=== PATIENT | female | born 1960 ===

== ENCOUNTER 2023-06-27 06:30 | Day surgery (SDC) | payer BC, OTHER ==
[2023-06-22 09:54] LABS: Absolute Lymphocytes (CBC) 1.2 K/uL (0.7-4.9); Hematocrit 35.2 % (36.0-45.0); MCV 86.4 fL (80-100); MPV 8.7 fL (7.6-11.3); Platelets 173 thou/uL (152-406); RBC Red Blood Cell Count 4.08 M/uL (3.86-4.86)
--- NOTE | 2023-06-22 10:05 | RAD REPORT ---
EXAM DESCRIPTION: RAD - Chest Pa And Lat (2 Views) - 06/22/2023 9:41 am CLINICAL HISTORY: Pre op pending heart catheterization COMPARISON: No comparisons FINDINGS: Lines: None. Lungs: No evidence of edema or pneumonia. Pleural: No significant pleural effusions or pneumothorax. Cardiac: The heart size is within normal limits. Mediastinum: Within normal limits. Bones: No acute fractures. Other: None IMPRESSION: No acute cardiopulmonary disease.
--- NOTE | 2023-06-26 13:44 | EKG ---
Test Date: 2023-06-22 Test Time: 11:05:13 Rig Site Engineer: NIDHI MEASUREMENT RESULTS: Intervals: Rate: 52 [place]: 164 QRSD: 86 QT: 434 QTc: 403 [place]: P: 71 [place]: 164 QRS: 65 T: 72 INTERPRETIVE STATEMENTS: Sinus bradycardia Otherwise normal ECG Compared to ECG 01/25/2018 07:56:27 No significant changes Electronically Signed On 06-26-23 13:31:45 FOOD SERVICE SPECIALIST by Delvin Weiss
[2023-06-27] MEDS ORDERED: NA CHLORIDE 0.9% 1,000 ML ONE (06:51)
[2023-06-27] MEDS ORDERED: VERAPAMIL HCL 10 MG/4 ML VIAL IV ONE (06:53)
[2023-06-27] MEDS ORDERED: NITROGLYCERIN/D5W 50 MG/250 ML BTL IV ONE (06:53)
[2023-06-27] MEDS ORDERED: HEPA 1000U/500MLS 2,000 UNIT/1,000 ML BAG IV ONE (06:53)
[2023-06-27] MEDS ORDERED: FENTANYL CITR 100 MCG/2 ML ONE (06:53)
[2023-06-27] MEDS ORDERED: LIDOCAINE 1% 20 ML MDV ONE (06:53)
[2023-06-27] MEDS ORDERED: ATROPINE SULF 1 MG/10 ML SYR IV ONE (06:54)
[2023-06-27] MEDS ORDERED: MIDAZOLAM HCL 2 MG/2 ML INJ ONE (06:54)
[2023-06-27] MEDS ORDERED: TICAGRELOR 90 MG TABLET PO ONE (06:55)
[2023-06-27] MEDS ORDERED: HEPARIN 10,000 UNIT/10 ML VIAL IV ONE (06:55)
[2023-06-27] MEDS ORDERED: ASPIRIN 325 MG TAB ONE (06:55)
[2023-06-27] MEDS ORDERED: CLOPIDOGREL 75 MG TABLET ONE (06:55)
[2023-06-27] MEDS ORDERED: HEPARIN 5000 UNIT/ML 1 ML VIAL ONE (06:55)
--- NOTE | 2023-06-27 09:04 | OP ---
Date of Procedure: 06/27/2023 Surgeon: DIANA MCBRIDE Procedures Performed: 1.Selective coronary angiogram. 2.Left heart catheterization. Indication: Chest pain with abnormal stress test. Access: Right radial artery 6-[place]izen [place] closed with TR band. Complications: None. Bleeding: Less than 20 mL. Description Of Procedure: After risks, benefits, and alternatives were explained, patient agreed to procedure and signed informed consent. Patient was brought into cardiac catheterization laboratory, prepped and draped in usual sterile fashion. Then, I accessed right radial artery using pediatric mi cropuncture kit, placed a 6-[place]izen [place] Slender sheath, took 5-[place] 4.0 catheter over J-wire into the aortic root, engaged left main, took standard views and then in RCA, took standard views and the catheter was pushed over the wire into the LV, measured the LVEDP. Pullback did not record any gradi ent. I removed the catheter and the sheath, placed TR band with good hemostasis. Findings: 1.Left main, large and normal. 2.LAD: Normal in all segments. Normal diagonal branches. 3.Left circumflex is normal. 4.RCA. It is dominant and normal. 5.Normal LVEDP at 5 mmHg. Conclusion: 1.Normal coronary arteries. 2.Normal LVEDP. Recommendations: Search for other causes of chest pain and medical management. /[email or web address] Voice ID: [id number] Report ID: [id number]
[2023-06-27 09:59] VITALS: BP 125/60; O2SAT 100
== END 2023-06-27 10:00 | disposition home or self-care (01) ==
LOC: CCL 06:30
PROVIDERS: ATTEND Internal Medicine
DX: R94.39 Abnormal result of other cardiovascular function study (principal); R07.9 Chest pain, unspecified; I35.1 Nonrheumatic aortic (valve) insufficiency
CPT/HCPCS: 93005; 85025; 80048; 36415; 83721; 85610; 85730; 71046; 93458; 76937; C1893; Q9966; J1644; J2001; J2250; J3010; J7030; 99152; 99153; J0461